=== PATIENT | male | born 1960 | race Caucasian/White ===

== ENCOUNTER 2018-11-25 07:29 | Emergency (ER) | payer OTHER ==
[~2018-11-25] VITALS: Ht 177.8 cm; Wt 95.3 kg
[~2018-11-25 07:29] MED LIST: BACTRIM DS TAB1 EACH PO; CIPRO500 MG PO; CIPROFLOXACIN500 M1 PO; FLAGYL500 MG PO; IBUPROFEN 800800 M1 PO; NORCO 5-325 TA1 EACH PO; UNICOMPLEX M TA1 TA1 PO
[2018-11-25] MEDS ORDERED: CYCLOBENZAPRINE5 MG PO (09:51)
[2018-11-25] MEDS ORDERED: TORADOL 10 MG T10 MG PO (09:51)
[2018-11-25 10:05] VITALS: BP 115/70
== END 2018-11-25 10:06 | disposition home or self-care (01) ==
LOC: M.ERS 07:29
DX: S46.811A Strain of other muscles, fascia and tendons at shoulder and upper arm level, right arm, initial encounter (principal); W18.39XA Other fall on same level, initial encounter; Y93.89 Activity, other specified; Y92.89 Other specified places as the place of occurrence of the external cause; Y99.8 Other external cause status

== ENCOUNTER 2019-05-23 22:56 | Emergency (ER) | payer OTHER ==
[~2019-05-23] VITALS: Ht 177.8 cm; Wt 102.1 kg
[~2019-05-23 22:56] MED LIST changes: +CYCLOBENZAPRINE5 MG PO; +TORADOL 10 MG T10 MG PO
[2019-05-23 23:43] LABS: ABSOLUTE BASOPHILS 0.1 thou/uL (0.0-0.2); ABSOLUTE EOSINOPHILS 0.2 thou/uL (0.0-0.7); ABSOLUTE LYMPHOCYTES 3.5 thou/uL (0.8-5.3); ABSOLUTE MONOCYTES 0.9 thou/uL (0.0-1.2); ABSOLUTE NEUTROPHILS 6.7 thou/uL (1.6-8.1); BASOPHILS 1.2 %; EOSINOPHILS 1.7 %; HEMATOCRIT 48.1 % (42.0-52.0); HEMOGLOBIN 16.8 gm/dL (14.0-18.0); LYMPHOCYTES 30.7 %; MCH 31.4 pg (26.0-34.0); MCHC 34.9 g/dL (28.0-37.0); MCV 89.8 fL (80.0-100.0); MONOCYTES 7.7 %; MPV 6.9 fl. (7.2-11.1); NUCLEATED RBCS 0 /100WBC; PLATELET COUNT* 205 thou/uL (150-400); POLYS 58.7 %; RBC 5.36 mil/uL (4.50-6.00); RDW-CV 12.8 % (10.5-14.5); WBC 11.5 thou/uL (4.0-11.0)
[2019-05-23 23:52] LABS: CREATININE 1.1 mg/dL (0.6-1.3); POTASSIUM 3.7 mmol/L (3.5-5.1)
[2019-05-23 23:55] LABS: PROTIME 10.3 Seconds (9.20-11.50)
[2019-05-24 00:03] LABS: ALBUMIN 3.9 g/dL (3.4-5.0); TOTAL BILIRUBIN 0.2 mg/dL (<0.1-1.0); TOTAL PROTEIN 7.6 g/dL (6.4-8.2)
[2019-05-24 02:03] VITALS: BP 144/76
--- NOTE | 2019-05-24 11:03 | EKG ---
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 05/24/19 1102 04 04 Francois Medrano MD, FACC /EPI
== END 2019-05-24 02:06 | disposition home or self-care (01) ==
LOC: M.ERS 22:56
PROVIDERS: Emergency Medicine
DX: R06.00 Dyspnea, unspecified (principal)

== ENCOUNTER 2019-10-21 09:46 | Emergency (ER) | payer OTHER ==
[~2019-10-21] VITALS: Ht 177.8 cm; Wt 98.4 kg
[2019-10-21] MEDS ORDERED: ZPAK PO (10:27)
[2019-10-21] MEDS ORDERED: PREDNISONE 20 M20 M1 PO (10:27)
[2019-10-21] MEDS ORDERED: VENTOLIN HFA 1818 GM INH (10:27)
[2019-10-21 10:39] VITALS: BP 111/74
--- NOTE | 2019-10-21 15:02 | EKG ---
[place] [address] ELECTROCARDIOGRAM REPORT Name: SHAMAR,ROBYN Jodri Room: 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
[2019-10-21] MEDS ORDERED: SUPER THERAVIT1 EACH PO (20:53)
== END 2019-10-21 10:40 | disposition home or self-care (01) ==
LOC: M.ERS 09:46
DX: J40 Bronchitis, not specified as acute or chronic (principal); F12.90 Cannabis use, unspecified, uncomplicated

== ENCOUNTER 2019-10-21 20:43 | Emergency (ER) | payer OTHER ==
[~2019-10-21] VITALS: Ht 177.8 cm; Wt 98.4 kg
[~2019-10-21 20:43] MED LIST changes: +PREDNISONE 20 M20 M1 PO; +VENTOLIN HFA 1818 GM INH; +ZPAK PO
[2019-10-21] MEDS ORDERED: SUPER THERAVIT1 EACH PO (20:53)
[2019-10-21 21:28] LABS: ABSOLUTE BASOPHILS 0.1 thou/uL (0.0-0.2); ABSOLUTE EOSINOPHILS 0.1 thou/uL (0.0-0.7); ABSOLUTE LYMPHOCYTES 3.6 thou/uL (0.8-5.3); ABSOLUTE MONOCYTES 1.2 thou/uL (0.0-1.2); ABSOLUTE NEUTROPHILS 5.7 thou/uL (1.6-8.1); BASOPHILS 1.3 %; EOSINOPHILS 1.2 %; HEMATOCRIT 45.6 % (42.0-52.0); HEMOGLOBIN 16.3 gm/dL (14.0-18.0); LYMPHOCYTES 33.5 %; MCH 32.2 pg (26.0-34.0); MCHC 35.8 g/dL (28.0-37.0); MCV 89.9 fL (80.0-100.0); MONOCYTES 10.9 %; MPV 6.8 fl. (7.2-11.1); NUCLEATED RBCS 0 /100WBC; PLATELET COUNT* 210 thou/uL (150-400); POLYS 53.1 %; RBC 5.06 mil/uL (4.50-6.00); RDW-CV 12.6 % (10.5-14.5); WBC 10.8 thou/uL (4.0-11.0)
[2019-10-21 21:37] LABS: CALCIUM 9.1 mg/dL (8.5-10.1); CREATININE 1.1 mg/dL (0.6-1.3); POTASSIUM 3.6 mmol/L (3.5-5.1)
[2019-10-21 21:52] LABS: ALBUMIN 3.8 g/dL (3.4-5.0); TOTAL BILIRUBIN 0.4 mg/dL (<0.1-1.0); TOTAL PROTEIN 7.6 g/dL (6.4-8.2)
[2019-10-21 22:02] VITALS: BP 134/80
--- NOTE | 2019-10-22 13:12 | EKG ---
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 Robyn Hernadez MD, [facility] /EPI
== END 2019-10-21 22:03 | disposition home or self-care (01) ==
LOC: M.ERS 20:43
PROVIDERS: Emergency Medicine
DX: F41.9 Anxiety disorder, unspecified (principal); Z20.828 Contact with and (suspected) exposure to other viral communicable diseases; R06.4 Hyperventilation; R06.02 Shortness of breath; J44.9 Chronic obstructive pulmonary disease, unspecified; F17.210 Nicotine dependence, cigarettes, uncomplicated; Z79.899 Other long term (current) drug therapy

== ENCOUNTER → 2021-03-15 | Outpatient (CLI) | payer OTHER ==
[~2021-03-15] MED LIST changes: +SUPER THERAVIT1 EACH PO
== END ==
LOC: M.CT 13:00
PROVIDERS: ATTEND Family Medicine
DX: K76.0 Fatty (change of) liver, not elsewhere classified (principal); N28.1 Cyst of kidney, acquired; N20.0 Calculus of kidney; K57.30 Diverticulosis of large intestine without perforation or abscess without bleeding; R36.1 Hematospermia; R31.0 Gross hematuria